=== PATIENT | male | born 1990 | race Caucasian/White ===

== ENCOUNTER → 2020-09-12 | Outpatient (CLI) | payer BC | LOC: EXRD 09:46 | DX: R10.32 Left lower quadrant pain (principal) | CPT/HCPCS: 76700 ==

== ENCOUNTER → 2021-06-05 | Outpatient (CLI) | payer BC | LOC: RAD 08:51 | DX: R13.10 Dysphagia, unspecified (principal); K22.0 Achalasia of cardia | CPT/HCPCS: 74221 ==

== ENCOUNTER → 2021-07-08 | Day surgery (SDC) | payer BC ==
[~2021-07-08] MED LIST: OMEPRAZOLE40 MG PO
== END | disposition home or self-care (01) ==
LOC: OR 07:15
DX: K22.0 Achalasia of cardia (principal); K21.00 Gastro-esophageal reflux disease with esophagitis, without bleeding; Z79.899 Other long term (current) drug therapy
CPT/HCPCS: J2704; J7040

== ENCOUNTER → 2021-08-14 | Outpatient (CLI) | payer BC | LOC: CT 13:07 | DX: R22.0 Localized swelling, mass and lump, head (principal); K22.89 Other specified disease of esophagus | CPT/HCPCS: 74160; Q9967 ==

== ENCOUNTER → 2021-11-25 | Outpatient (CLI) | payer BC | LOC: LAB 15:01 | DX: K22.0 Achalasia of cardia (principal); Z20.822 Contact with and (suspected) exposure to COVID-19 | CPT/HCPCS: U0002 ==